=== PATIENT | male | born 1960 | race African-American/Black ===

== ENCOUNTER → 2018-07-17 | Emergency (ER) | payer OTHER ==
[~2018-07-17] VITALS: Ht 167.6 cm; Wt 113.4 kg
[~2018-07-17] MED LIST: LISINOPRIL10 MG PO; SEROQUEL 50 MG50 MG PO; TRAZODONE HCL100 MG PO
[2018-07-17 17:09] VITALS: BP 146/86
--- NOTE | 2018-07-18 09:52 | EKG ---
[place] [address] ELECTROCARDIOGRAM REPORT Name: DARLINE ABDI Room: [facility]#: [id number] Admission: 07/17/18 Attend Phys: Discharge: Date of : 62 Report #: [id number] THIS REPORT FOR: //name// [facility] ED Test Date: 2018-07-17 Test Time: 17:09:22 Pat Name: DARLINE ABDI Department: Room: Gender: Aerospace Engineer Officer Armament: [place] : 1960 Requested By: Sander Morales Order Number: [id number] MD: Lance Griffin Measurements Intervals [place] Rate: 73 P: 59 NE: 147 QRS: 32 QRSD: 100 T: 32 QT: 369 QTc: 407 Interpretive Statements Sinus rhythm Probable left atrial enlargement Minimal ST elevation, anterior leads No previous ECG available for comparison Electronically Signed On 07-18-2018 9:52:02 PRODUCT TECHNOLOGY SCIENTIST by Lance Griffin [email or web address] <ELECTRONICALLY SIGNED> By: Lance Griffin MD, [facility] 07/18/18 0952 1709 1709 Lance Griffin MD, FACC /EPI
== END ==
LOC: M.ERS 17:05
DX: R07.89 Other chest pain (principal); I10 Essential (primary) hypertension; F41.9 Anxiety disorder, unspecified; G47.00 Insomnia, unspecified; F17.210 Nicotine dependence, cigarettes, uncomplicated